=== PATIENT | male | born 1955 | race African-American/Black ===

== ENCOUNTER 2018-08-01 07:59 | Day surgery (SDC) | END 2018-08-01 14:37 | disposition home or self-care (01) ==

== ENCOUNTER 2019-07-11 10:47 | Day surgery (SDC) | payer OTHER ==
[2019-07-11] VITALS (15 sets, daily range): BP systolic 114–138; BP diastolic 80–96; PULSE 52–70; RESP 10–19; Ht 172.7 cm; Wt 80.1 kg
[~2019-07-11] VITALS: Ht 172.7 cm; Wt 80.1 kg
[~2019-07-11 10:47] MED LIST: ACET-2158 PO; AMLO-147 ORAL; AMLO5TAB4 PO; ATOR20TA38 PO; BISA-57 PO; CYCL10TA7 ORAL; DICLOFENAC SODIUM PO; DOCU-144 PO; FINASTERIDE PO; IMIPRAMINE PO; KEPPRA PO; LEVE750T70 PO; LOSA25TA12 ORAL; OMEP40CA6 ORAL; TAMS-14 PO; TIMO15DR16 OP
[2019-07-11] MEDS ORDERED: SUCCINYLCHOLINE CHLORIDE 100 MG/5 ML SYG IV ONE (12:27)
[2019-07-11] MEDS ORDERED: ROCURONIUM 50 MG INJ ONE (12:27)
[2019-07-11] MEDS ORDERED: GLYCOPYRROLATE 0.4 MG INJ ONE ×2 (12:27→13:24)
[2019-07-11] MEDS ORDERED: PROPOFOL 20 ML ONE (12:27)
[2019-07-11] MEDS ORDERED: LIDOCAINE 2% (SDV) 5 ML INJ ONE (12:27)
[2019-07-11] MEDS ORDERED: NEOSTIGMINE 3 MG/3 ML SYRINGE ONE ×2 (12:27→13:24)
[2019-07-11] MEDS ORDERED: LACTATED RINGER'S 1,000 ML IV SCH (13:00)
[2019-07-11] MEDS ORDERED: ONDANSETRON 4 MG INJ ONE (13:24)
[2019-07-11] MEDS ORDERED: CEFAZOLIN 1 GM INJ ONE (13:24)
[2019-07-11] MEDS ORDERED: MIDAZOLAM 1 MG/ML 2 ML INJ IV PRN (13:30)
[2019-07-11] MEDS ORDERED: EPHEDrine 25 MG/5 ML SYG IV PRN (13:30)
[2019-07-11] MEDS ORDERED: FENTAnyl 50 MCG/ML VIAL IV PRN ×3 (13:30)
[2019-07-11] MEDS ORDERED: ONDANSETRON 4 MG INJ IV PRN (13:30)
[2019-07-11] MEDS ORDERED: MEPERIDINE 25 MG INJ IV PRN (13:30)
[2019-07-11] MEDS ORDERED: hydrALAzine 20 MG INJ IV PRN (13:30)
[2019-07-11] MEDS ORDERED: OXYCODONE/ACETAMINOPHEN (5/325) TAB PO PRN ×2 (13:30)
[2019-07-11] MEDS ORDERED: LABETALOL HCL 20MG INJ IV PRN (13:30)
[2019-07-11] MEDS ORDERED: METOCLOPRAMIDE 10 MG INJ IV PRN (13:30)
[2019-07-11] MEDS ORDERED: HYDROmorphONE 1 MG/5 ML IV SYRINGE IV PRN ×3 (13:30)
[2019-07-11] MEDS ORDERED: DIPHENHYDRAMINE 50 MG INJ IV PRN (13:30)
[2019-07-11] MEDS ORDERED: HYDROCODONE/APAP (5/325) TAB PO PRN (14:00)
== END 2019-07-11 16:15 | disposition home or self-care (01) ==
LOC: SDS 10:47
PROVIDERS: ATTEND Urology
DX: N21.0 Calculus in bladder (principal); I10 Essential (primary) hypertension; G89.29 Other chronic pain
CPT/HCPCS: 52224; 87086; J0690; J2405; J2710; Z7610; 88300; 88305

== ENCOUNTER 2019-07-21 08:26 | Day surgery (SDC) | payer OTHER ==
[~2019-07-21] VITALS: Ht 172.7 cm; Wt 80.2 kg
[~2019-07-21 08:26] MED LIST changes: -ACET-2158 PO; -AMLO5TAB4 PO; +ATORVASTATIN; -BISA-57 PO; -DICLOFENAC SODIUM PO; -DOCU-144 PO; -FINASTERIDE PO; -IMIPRAMINE PO; +KEPPRA; -KEPPRA PO; +NAPROXEN; +OMEP40CA38 ORAL; -OMEP40CA6 ORAL; -TAMS-14 PO
[2019-07-21 09:16] VITALS: Ht 172.7 cm; Wt 80.2 kg
[2019-07-21 09:19] VITALS: BP 125/84; PULSE 58; RESP 16
[2019-07-21] MEDS ORDERED: PROPOFOL 40 ML ONE (09:34)
[2019-07-21 10:30] VITALS: BP 127/88; PULSE 54; RESP 18
== END 2019-07-21 13:10 | disposition home or self-care (01) ==
LOC: GIL 08:26 → MERGE 10:30 → GIL 13:10
PROVIDERS: ATTEND Internal Medicine Gastroenterology
DX: Z12.11 Encounter for screening for malignant neoplasm of colon (principal); D12.3 Benign neoplasm of transverse colon; K44.9 Diaphragmatic hernia without obstruction or gangrene; K21.9 Gastro-esophageal reflux disease without esophagitis; K29.50 Unspecified chronic gastritis without bleeding; I10 Essential (primary) hypertension; Z86.73 Personal history of transient ischemic attack (TIA), and cerebral infarction without residual deficits; G40.909 Epilepsy, unspecified, not intractable, without status epilepticus
CPT/HCPCS: 43239; 45380; 88305; 88312; Z7610